=== PATIENT | female | born 1930 | race Caucasian/White ===

== ENCOUNTER 2016-05-14 20:29 | Emergency (ER) | payer MEDICARE, OTHER ==
[2016-05-14 21:23] LABS: Hematocrit 37.3 % (37.0-47.0); Hemoglobin 12.2 gm/dL (12.5-16.0); Mean Cell Volume 94.4 fl (78-100); Mean Corpuscular Hemoglobin 30.9 pg (27-31); Mean Corpuscular Hgb Conc 32.7 g/dl (32-36); Mean Platelet Volume 9.2 fl (6.0-9.5); Neutrophil # 7.9 K/mm3 (1.3-6.0); Neutrophil % 77.2 % (42-75.0); Platelet Count 218 K/mm3 (150-450); Red Blood Count 3.95 M/mm3 (4.2-5.4); Red Cell Distribution Width 12.7 % (11.5-14.0); White Blood Count 10.2 K/mm3 (4.0-10.5)
[2016-05-14 21:32] LABS: Prothrombin Time (Patient) 10.9 Seconds (9.4-11.4)
[2016-05-14 21:35] LABS: Albumin * 3.8 gm/dl (3.4-5.0); Anion Gap 17.4 mmol/L (6.8-13.8); BUN/Creatinine Ratio 18.7 (9.0-21.6); Bilirubin, Total 0.3 mg/dL (0.0-1.1); Calcium * 9.2 mg/dL (7.9-10.9); Potassium 3.4 mmol/L (3.4-4.6); Total Protein 7.4 gm/dL (6.2-8.2)
[2016-05-14 21:37] LABS: INR 1.05 INR (0.90-1.10)
[2016-05-14 22:15] LABS: Urine Bilirubin Negative (NEGATIVE); Urine Blood Negative /ul (NEGATIVE); Urine Ketone Negative (NEGATIVE); Urine Nitrite Negative (NEGATIVE); Urine Protein Negative (NEGATIVE); Urine Specific Gravity 1.025 SP.GR. (1.005-1.010); Urine Urobilinogen Normal (NORMAL)
[2016-05-14 22:32] LABS: Urine Appearance Slightly Cloudy; Urine Bacteria 4+; Urine Color Yellow; Urine RBC None Seen /hpf (0-5); Urine WBC 0-5 /hpf (0-5)
[2016-05-14 22:33] LABS: Urine Hyaline Cast 0-5 /LPF
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
[2016-05-14] MEDS ORDERED: HYDROmorphone HCL 1 MG/ML DISP.SYRIN IM ONE (22:51)
[2016-05-14] MEDS ORDERED: ONDANSETRON 4 MG TAB.RAPDIS PO ONE (22:52)
[2016-05-14] MEDS ORDERED: HYDROmorphone HCL 1 MG/ML DISP.SYRIN ONE (23:10)
[2016-05-14] MEDS ORDERED: ONDANSETRON 4 MG TAB.RAPDIS ONE (23:14)
[2016-05-15 00:08] VITALS: BP 144/58
== END 2016-05-15 00:51 | disposition home or self-care (01) ==
LOC: ER 20:29
DX: S80.01XA Contusion of right knee, initial encounter (principal); S09.90XA Unspecified injury of head, initial encounter; S20.211A Contusion of right front wall of thorax, initial encounter; W19.XXXA Unspecified fall, initial encounter; Y92.009 Unspecified place in unspecified non-institutional (private) residence as the place of occurrence of the external cause; Z96.653 Presence of artificial knee joint, bilateral

== ENCOUNTER 2016-08-14 15:44 | Emergency (ER) | payer MEDICARE, OTHER ==
[2016-08-14 16:01] VITALS: BP 136/57
--- NOTE | 2016-08-14 17:33 | ERNOTE ---
ENT HPI Date of Service: 08/14/16 Presenting Symptoms: foreign body Time Seen by Provider: 08/14/16 17:25 Source: patient, family, RN notes reviewed Exam Limitations: no limitations - Immun/Allergies/Home Medications Immunizations: IMMUNIZATION HX Immunizations Up to Date Yes History of Influenza Vaccine No Hx Pneumococcal Vaccination Yes Allergies/Adverse Reactions: Allergies Allergy/AdvReac Type Severity Reaction Status Date / Time No Known Allergies Allergy Verified 08/14/16 16:01 Home Medications: HOME MEDICATIONS levETIRAcetam [Keppra] 250 mg PO DAILY 08/14/16 [Last Taken Unknown] - History of Present Illness Narrative: 86 y/o female to ED by private vehicle for a foreign body in her right ear. She was attempting to get water out of her ear with a cotton swab. When she removed the QTip from her ear it was missing the cotton end. She then attempted to flush the ear with water but nothing came out. ENT Location: Present: ear (R) Review of Systems - Review of Systems Constitutional: Present: no symptoms reported EYE: Present: no symptoms reported ENT: Absent: ear pain, ear discharge Respiratory: Present: no symptoms reported Cardiology: Present: no symptoms reported Gastrointestinal/Abdominal: Present: no symptoms reported Genitourinary: Present: no symptoms reported Musculoskeletal: Present: no symptoms reported Skin: Present: no symptoms reported Neurological: Absent: headache, dizziness/light-headedness Endocrine: Present: no symptoms reported Hematologic/Lymphatic: Present: no symptoms reported Psych: Present: no symptoms reported - Patient's Past Medical History Patient History - Medical: Arthritis, Seizures Patient History - Cardiac/Respiratory: No pertinent hx Patient History - Cancer: No Hx of Cancer Patient History - Surgical Procedures: Back Surgery, Total Knee Replacement, Other Patient History - Other: None - Social History Living Situations: spouse Psych History: No pertinent hx Smoking Status: Former smoker Have you smoked in the past 12 months: No Do you dip or chew tobacco: No Alcohol Use: rarely Drug Use: none - Immunizations Immunizations Up to Date: Yes Hx Pneumococcal Vaccination: Yes History of Influenza Vaccine: No Physical Exam - Physical Exam General Appearance: Present: wd/wn, alert, no apparent distress Ears, Nose, Throat: Present: other - normal appearing TM's bilaterally, no foreign body present in either external auditory canal. Absent: hearing decreased Respiratory: Present: no respiratory distress, no accessory muscle use Neurological Exam: Present: alert, oriented, normal mood/affect Skin Exam: Present: normal color, warm/dry ED Progress - Vital Signs Patient's Vital Signs:: I have reviewed the patient's vital signs. Vital Signs: Vital Signs 08/14/16 15:53 Temperature 36.2 C L Pulse Rate 84 Respiratory 14 Rate Blood Pressure 136/57 O2 Sat by Pulse 97 Oximetry - Progress/Reassessment Chief Complaint: Earache Progress:: Pain free at discharge Departure Clinical Impression: Foreign body sensation in ear canal Qualifiers: Laterality: right Qualified Code(s): H61.891 - Other specified disorders of right external ear - Departure Disposition: Home self-care Condition: Good Additional Instructions: Do not put Q-tips in your ears Referrals: Sidney Donnelly MD [Primary Care Provider] -
--- OUTSIDE RECORDS SUMMARY | 2016-08-14 17:36 | XMS REPORT | Continuity of Care Document ---
:1930 Author Organization [facility] ([facility]) [place] [address] Phone [phone] Care Team Providers Name Role Phone Unavailable Primary Care Provider Unavailable Source Comments This disclosure is being made pursuant to the Care Everywhere program, applicable federal and state laws, and may not contain all informaitonavailable regarding this patient.[facility] ([facility]) Active Allergies and Adverse Reactions No Active Allergies Current Medications Not on file Active Problems Problem Noted Date 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 Other postoperative infection 07/21/2002 Pre-operative cardiovascular examination 05/02/2002 Other specified pre-operative examination 05/02/2002 Unspecified epilepsy without mention of intractable epilepsy 05/02/2002 Unspecified essential hypertension 05/02/2002 Spinal stenosis, unspecified region other than cervical 07/14/2001 Social History Tobacco Use Types Packs/Day Years Used Date Never Assessed Last Filed Vital Signs Vital Sign Reading Time Taken Blood Pressure - - Pulse - - Temperature - - Respiratory Rate - - Height 1.6 m (5' 2.99") 07/14/2001 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
== END 2016-08-14 17:35 | disposition home or self-care (01) ==
LOC: ER 15:44
DX: T16.1XXA Foreign body in right ear, initial encounter (principal); Z87.891 Personal history of nicotine dependence; R56.9 Unspecified convulsions; Y93.E8 Activity, other personal hygiene

== ENCOUNTER 2017-02-12 15:02 | Emergency (ER) | payer MEDICARE, OTHER ==
[2017-02-12] MEDS ORDERED: KETOROLAC TROMETHAMINE 30 MG/ML VIAL IM ONE (15:19)
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
[2017-02-12] MEDS ORDERED: KETOROLAC TROMETHAMINE 30 MG/ML VIAL ONE (15:36)
[2017-02-12 15:40] LABS: Hematocrit 34.2 % (37.0-47.0); Hemoglobin 11.5 gm/dL (12.5-16.0); Mean Cell Volume 93.2 fl (78-100); Mean Corpuscular Hemoglobin 31.3 pg (27-31); Mean Corpuscular Hgb Conc 33.6 g/dl (32-36); Mean Platelet Volume 9.8 fl (6.0-9.5); Neutrophil # 6.1 K/mm3 (1.3-6.0); Neutrophil % 75.7 % (42-75.0); Platelet Count 189 K/mm3 (150-450); Red Blood Count 3.67 M/mm3 (4.2-5.4); Red Cell Distribution Width 13.3 % (11.5-14.0); White Blood Count 8.1 K/mm3 (4.0-10.5)
[2017-02-12 16:00] LABS: ALT 28 U/L (19-67); AST 28 U/L (0-48); Alkaline Phosphatase * 128 U/L (50-170); BUN/Creatinine Ratio 22.6 (9.0-21.6); Bilirubin, Total 0.5 mg/dL (0.0-1.1); Blood Urea Nitrogen 37 mg/dL (3-23); Ca. Corrected For Albumin 8.8 mg/dL (8.4-10.2); Calcium * 9.1 mg/dL (7.9-10.9); Chloride 103 mmol/L (97-106); Glucose * 93 mg/dL (70-110); Sodium 138 mmol/L (132-142); Total Protein 7.4 gm/dL (6.2-8.2); Troponin I Less than 0.017 ng/ml (0.00-0.10)
[2017-02-12 18:31] VITALS: BP 188/90
== END 2017-02-12 18:10 | disposition home or self-care (01) ==
LOC: ER 15:02
DX: S00.83XA Contusion of other part of head, initial encounter (principal); M24.411 Recurrent dislocation, right shoulder; W01.198A Fall on same level from slipping, tripping and stumbling with subsequent striking against other object, initial encounter; Y93.01 Activity, walking, marching and hiking; Y92.009 Unspecified place in unspecified non-institutional (private) residence as the place of occurrence of the external cause

== ENCOUNTER 2020-02-23 07:38 | Observation (INO) ==
[2020-02-23] MEDS ORDERED: ONDANSETRON HCL/PF 2 MG/ML VIAL ONE (07:44)
[2020-02-23] MEDS ORDERED: ONDANSETRON HCL/PF 2 MG/ML VIAL IV ONE (07:50)
[2020-02-23] MEDS ORDERED: NORMAL SALINE 1,000 ML IV ONE (08:13)
--- NOTE | 2020-02-23 08:32 | ERNOTE ---
Dizziness ER Record Date of Service: 02/23/20 Presenting Symptoms: dizziness Time Seen by Provider: 02/23/20 08:02 Source: patient Exam Limitations: no limitations Immunizations: IMMUNIZATION HX Immunizations Up to Date Yes History of Influenza Vaccine No Hx Pneumococcal Vaccination No Allergies/Adverse Reactions: Allergies Allergy/AdvReac Type Severity Reaction Status Date / Time No Known Allergies Allergy Verified 05/25/19 13:19 Home Medications: HOME MEDICATIONS Beta-Carotene(A) W-C , E/Min [Ocuvite] 1 tab PO DAILY 02/12/17 [Last Taken Unknown] hydrochlorothiazide 12.5 mg tablet 12.5 mg PO DAILY #90 tab 04/25/19 [Last Taken Unknown] potassium chloride 10 mEq tablet,extended release See Rx Instructions .ROUTE .COMPLEX #90 unknown measurement unit code: tablet 08/04/19 [Last Taken Unknown] levetiracetam 250 mg tablet 250 mg PO DAILY #90 tab 01/30/20 [Last Taken Unknown] - History of Present Illness Narrative: Patient presents to the ED for spinning dizziness. She was fine last night at 10 when she went to bed. When she woke up this morning she had spinning dizziness with any movements or turning her head. She rested to see if this would go away but every times she turned over or tried to get up she was too dizzy. Better if she stayed at rest. With the severe spinning she became nauseated. Did not take her am blood pressure meds due to the nausea. No CP or SOB. No abdominal pain. No new focal N/T/W. Timing and Duration: lasted greater than 3 hrs Noted on awakening:: Yes Severity: max: severe Severity: currently: moderate Associated Symptoms: Present: nausea. Absent: hearing loss, ringing/roaring in ear, ear pain, headache, numbness Sense of movement: Present: spinning Decreased ability to stand/walk:: Present: off balance Modifying Factors - (Improves): Reports: other - rest Modifying Factors - (Worsens): Reports: other - position change, turning head Prior Treament: Denies: recently seen Review of Systems - Review of Systems Constitutional: Absent: fever EYE: Absent: double vision ENT: Absent: sore throat Respiratory: Absent: shortness of breath Cardiology: Absent: chest pain Gastrointestinal/Abdominal: Present: nausea. Absent: abdominal pain Genitourinary: Absent: dysuria Musculoskeletal: Present: other - chronic MSK Sx and neuropathy Neurological: Present: other - neuropathy All Other Systems: All systems neg except as marked Medical History (Last Reviewed 02/23/20 @ 08:31 by Harry Stroud MD) Urge incontinence (Chronic) Onset Date: Unknown Hypothyroidism (Chronic) Onset Date: ~1968 HTN (hypertension) (Chronic) Onset Date: Unknown Colitis Onset Date: Unknown Epilepsy Onset Date: Unknown Fibrosis of uterus Onset Date: Unknown Occasional tremors Onset Date: Unknown Osteoarthritis involving multiple joints on both sides of body Onset Date: Unknown Peripheral neuropathy Onset Date: Unknown Seizures Onset Date: ~1969 since 1970 Wears eyeglasses Onset Date: Unknown Surgical History: Surgical History (Last Reviewed 02/23/20 @ 08:31 by Harry Stroud MD) Cataract Onset Date: ~03/09/07 Sifuentes-03/09/2007-RT eye, 01/26/07 LT FH: HYUN-BSO (total abdominal hysterectomy and bilateral salpingo-oophorectomy) Onset Date: ~1979 uterine fibroids History of appendectomy Onset Date: Unknown History of back surgery Onset Date: ~2002 1994, 2002 x 2 History of colonoscopy Onset Date: ~09/22/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 History of esophagogastroduodenoscopy (EGD) Onset Date: ~09/22/11 Bagan-Clotest neg, moderate chemical irritation, chronic inflammation History of right shoulder replacement Onset Date: ~1989 History of tonsillectomy Onset Date: ~1933 Hx of total knee arthroplasty Onset Date: ~1989-1989, Lt 1988,1996 S/P adenoidectomy Onset Date: ~1933 S/P cystoscopy Onset Date: ~04/11/09 Tubal ligation evaluation Onset Date: ~1958 1956,1958 [place] teeth extracted Onset Date: ~2000 Family History: Family History (Last Reviewed 02/23/20 @ 08:31 by Harry Stroud MD) Father , 96-bladder cancer, [place] Cancer Heart disease Mother , 100-cervical cancer Cancer Social History: (Last Reviewed 02/23/20 @ 08:31 by Harry Stroud MD) Social History: custodial: No Marital status: / lives independently: Yes household members: spouse number of children: 7 current occupational status: retired Highest education level completed: 11th grade Sexually Active: No Service: No Tobacco: Smoking Status: Former smoker Alcohol: alcohol intake: current alcohol intake frequency: holiday/special occasion Dietary Habits: caffeine: Yes Type: coffee Physical Exam - Physical Exam General Appearance: Present: alert, no apparent distress Head Exam: Present: normal inspection, no evidence of injury Eye Exam: Normal inspection: bilateral, PERRL: bilateral Ears, Nose, Throat: Present: normal ENT inspection Neck: Present: normal inspection Respiratory: Present: no respiratory distress, normal breath sounds, no accessory muscle use, lungs clear Cardiovascular/Chest: Present: regular rate, rhythm, normal peripheral pulses Gastrointestinal/Abdominal: Present: normal bowel sounds, nontender, nondistended, soft Back Exam: Absent: CVA tenderness (R), CVA tenderness (L) Extremity Exam: Present: normal range of motion Neurological Exam: Present: alert, no motor/sensory deficits, 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 Reproducible dizziness and nystagmus with turning her head.. Absent: facial droop, motor weakness Skin Exam: Present: normal color, warm/dry Progress - Results and Orders Patient's Lab Results:: I have reviewed the patient's lab results. - Vital Signs Patient's Vital Signs:: I have reviewed the patient's vital signs. Vital Signs: Vital Signs 02/23/20 07:40 02/23/20 07:51 02/23/20 08:21 Temperature 36.0 C Pulse Rate 63 64 64 Respiratory Rate 22 H 18 Blood Pressure 183/98 H 169/72 H O2 Sat by Pulse Oximetry 97 96 - EKG EKG #1 EKG: NSR EKG read: Interp. by me EKG Comments: NSR rate 61. Non-specific, no STEMI noted - CT/Ultrasound CT/Ultrasound Narrative: I reviewed official radiology report for CT head. - Progress/Reassessment Chief Complaint: Dizziness Progress Note-Subjective: 02/23/20 09:48 No vestibulotherapy available today. Given IVF, meclizine and zofran. Despite this she was unable to walk on her own or go home safely. This is c/w BPV, no suggestion of stroke at this time. This dizziness is not likely due to her UTI. She is agreeable. I spoke with Dr Verdugo who will admit with plan for vestibulotherapy tomorrow. Departure Clinical Impression: Vertigo, UTI (urinary tract infection) - Departure Disposition: Still a patient Condition: Stable Referrals: Sidney Donnelly MD [Primary Care Provider] -
[2020-02-23 08:34] LABS: Hemoglobin 11.9 gm/dL (12.5-16.0); Mean Cell Volume 93.3 fl (78-100); Mean Corpuscular Hemoglobin 30.8 pg (27-31); Mean Corpuscular Hgb Conc 33.1 g/dl (32-36); Mean Platelet Volume 9.9 fl (8-12.5); Neutrophil # 4.6 K/mm3 (1.3-6.0); Neutrophil % 70.7 % (42-75.0); Platelet Count 177 K/mm3 (150-450); Red Blood Count 3.86 M/mm3 (4.2-5.4); Red Cell Distribution Width 13.1 % (11.5-14.0); White Blood Count 6.4 K/mm3 (4.0-10.5)
[2020-02-23 08:37] LABS: Urine Appearance Slightly Cloudy (CLEAR); Urine Bilirubin Negative (NEGATIVE); Urine Blood Negative /ul (NEGATIVE); Urine Color Pale Yellow; Urine Ketone Negative (NEGATIVE); Urine Nitrite Positive (NEGATIVE); Urine Protein Negative (NEGATIVE); Urine Specific Gravity 1.015 SP.GR. (1.005-1.010); Urine Urobilinogen Normal (NORMAL)
[2020-02-23 08:38] LABS: Urine Bacteria 1+; Urine RBC None Seen /hpf (0-5)
[2020-02-23] MEDS ORDERED: MECLIZINE HCL 25 MG TABLET PO ONE (08:41)
[2020-02-23 08:49] LABS: ALT 19 U/L (19-67); AST 26 U/L (0-48); Albumin * 3.6 gm/dl (3.4-5.0); Alkaline Phosphatase * 108 U/L (50-170); Anion Gap 15.1 mmol/L (6.8-13.8); BUN/Creatinine Ratio 30.9 (9.0-21.6); Bilirubin, Total 0.3 mg/dL (0.0-1.1); Blood Urea Nitrogen 38 mg/dL (3-23); Ca. Corrected For Albumin 9.5 mg/dL (8.4-10.2); Calcium * 9.5 mg/dL (7.9-10.9); Carbon Dioxide 24.3 mmol/L (24-32.6); Chloride 103 mmol/L (97-106); Glucose * 109 mg/dL (70-110); Potassium 3.4 mmol/L (3.4-4.6); Sodium 139 mmol/L (132-142); Total Protein 7.1 gm/dL (6.2-8.2); Troponin I Less than 0.017 ng/mL (0.00-0.10)
[2020-02-23] MEDS ORDERED: cefTRIAXone SODIUM 1,000 MG/100 ML BAG IV ONE (08:51)
--- NOTE | 2020-02-23 10:55 | HP ---
Chief Complaint - Chief Complaint Date of Service: 02/23/20 Time of Service: 09:56 Chief Complaint: Dizziness x1 day History of Present Illness: 89-year-old female with a past medical history of hypertension, hypothyroidism, seizure disorder, colitis, peripheral neuropathy, osteoarthritis, urge incontinence who presents from home with complaints of dizziness x1 day. She states she woke up this morning with significant dizziness and feeling that the room was spinning when she tried to get out of bed. She was unable to get out of bed without falling back indicating dizziness. She is also complained of nausea and one episode of vomiting scant liquid. She was brought to the emergency department for further evaluation. In the ER she was found to have elevated blood pressure and tachypnea, labs are at her baseline with chronic anemia and CKD, urine is positive for nitrates and leukocyte esterase. She denies pain with urination. She was given 1 dose of Rocephin in the emergency room. In the ER physician consulted physical therapy to come do vestibular therapy on her but they were not available until tomorrow. She needs assistance with ambulation and is not safe to be discharged home. She lives alone. She is being admitted for observation and will be evaluated by physical therapy for vestibular rehab. Medical History (Last Reviewed 02/23/20 @ 08:31 by Harry Stroud MD) Urge incontinence (Chronic) Onset Date: Unknown Hypothyroidism (Chronic) Onset Date: ~1968 HTN (hypertension) (Chronic) Onset Date: Unknown Colitis Onset Date: Unknown Epilepsy Onset Date: Unknown Fibrosis of uterus Onset Date: Unknown Occasional tremors Onset Date: Unknown Osteoarthritis involving multiple joints on both sides of body Onset Date: Unknown Peripheral neuropathy Onset Date: Unknown Seizures Onset Date: ~1969 since 1970 Wears eyeglasses Onset Date: Unknown Surgical History: Surgical History (Last Reviewed 02/23/20 @ 08:31 by Harry Stroud MD) Cataract Onset Date: ~03/09/07 [place]-03/09/2007-RT eye, 01/26/07 LT FH: HYUN-BSO (total abdominal hysterectomy and bilateral salpingo-oophorectomy) Onset Date: ~1979 uterine fibroids History of appendectomy Onset Date: Unknown History of back surgery Onset Date: ~2002 1993, 2002 x 2 History of colonoscopy Onset Date: ~09/22/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 History of esophagogastroduodenoscopy (EGD) Onset Date: ~09/22/11 Bagan-Clotest neg, moderate chemical irritation, chronic inflammation History of right shoulder replacement Onset Date: ~1989 History of tonsillectomy Onset Date: ~1933 Hx of total knee arthroplasty Onset Date: ~1989-1989, Lt 1988,1996 S/P adenoidectomy Onset Date: ~1933 S/P cystoscopy Onset Date: ~04/11/09 Tubal ligation evaluation Onset Date: ~1958 1956,1958 [place] teeth extracted Onset Date: ~2000 Family History: Family History (Last Reviewed 02/23/20 @ 08:31 by Harry Stroud MD) Father , 96-bladder cancer, [place] Cancer Heart disease Mother , 100-cervical cancer Cancer Social History: (Last Reviewed 02/23/20 @ 08:31 by Harry Stroud MD) Social History: group home: No Marital status: / lives independently: Yes household members: spouse number of children: 7 current occupational status: retired Highest education level completed: 11th grade Sexually Active: No Service: No Tobacco: Smoking Status: Former smoker Alcohol: alcohol intake: current alcohol intake frequency: holiday/special occasion Dietary Habits: caffeine: Yes Type: coffee Review Of Systems (GEN) - Review of Systems Generalized/Overall Review: Absent: Chills, Fever Respiratory: Absent: Shortness of Breath Cardiac: Absent: Chest Pain Abdominal: Present: Nausea, Vomiting. Absent: Abdominal Pain Genitourinary: Absent: Dysuria Neurological: Present: Other - Dizziness Misc: All systems neg except as marked Immunizations: IMMUNIZATION HX Immunizations Up to Date Yes History of Influenza Vaccine No Hx Pneumococcal Vaccination No Allergies/Adverse Reactions: Allergies Allergy/AdvReac Type Severity Reaction Status Date / Time No Known Allergies Allergy Verified 05/25/19 13:19 Home Medications: HOME MEDICATIONS Beta-Carotene(A) W-C , E/Min [Ocuvite] 1 tab PO DAILY 02/12/17 [Last Taken Unknown] hydrochlorothiazide 12.5 mg tablet 12.5 mg PO DAILY #90 tab 04/25/19 [Last Taken Unknown] potassium chloride 10 mEq tablet,extended release See Rx Instructions .ROUTE .COMPLEX #90 unknown measurement unit code: tablet 08/04/19 [Last Taken Unknown] levetiracetam 250 mg tablet 250 mg PO DAILY #90 tab 01/30/20 [Last Taken Unknown] Exam - Exam Vital Signs: Vital Signs - Last Taken Temp 36.0 C 02/23/20 07:40 Pulse 62 02/23/20 10:18 Resp 12 02/23/20 10:18 BP 136/76 02/23/20 10:18 Pulse Ox 100 02/23/20 10:18 Constitutional: Present: Alert, Cooperative, Well developed, Well nourished, No distress ENT Exam: Present: hearing grossly normal Eye Exam: bilateral eye: normal inspection, PERRL, EOMI Neck: Present: non-tender, supple. Absent: lymphadenopathy (R), lymphadenopathy (L) Back Exam: Present: normal inspection, no CVA tenderness, no vertebral tenderness Respiratory: Present: lungs clear, no respiratory distress, no accessory muscle use, No wheezing. Absent: crackles, rhonchi Cardiovascular/Chest: Present: normal peripheral pulses, regular rate, rhythm, no edema, no murmur Peripheral Pulses: dorsalis-pedis (R): 1+, dorsalis-pedis (L): 1+ Abdomen: Present: Normal bowel sounds, soft, nontender Extremity: Present: no pedal edema Skin Exam: Present: normal color, warm/dry Neurologic: Present: alert, normal mood/affect, dizzy/light-headedness Appearance: Present: appropriate appearance, appropriate insight Eye contact: Present: cooperative Thoughts: Present: normal thought pattern, normal mood /affect Diagnostic Studies: Abnormal Lab Results 02/23/20 02/23/20 02/23/20 Range/Units 08:11 08:11 08:11 RBC 3.86 L (4.2-5.4) M/mm3 Hgb 11.9 L (12.5-16.0) gm/dL Hct 36.0 L (37.0-47.0) % Immature Gran % (Auto) 0.90 H (0.001-0.429) % Immature Gran # (Auto) 0.06 H (0.000-0.0310) K/mm3 Lymphocytes % 15.6 L (20-51) % Eosinophils % 3.6 H (0.0-3.0) % Lymphocytes # 1.00 L (1.5-3.5) k/mm3 Anion Gap 15.1 H (6.8-13.8) mmol/L BUN 38 H (3-23) mg/dL Est GFR (Non-Af Amer) 44 L (60-130) mL/min BUN/Creatinine Ratio 30.9 H (9.0-21.6) Urine Nitrate Positive H (NEGATIVE) Ur Leukocyte Esterase 25 H (NEGATIVE) /ul Urine WBC 5-10 H (0-5) /hpf Ur Epithelial Cells 5-10 H (0-5) /hpf Urine Bacteria 1+ H (NONE) Laboratory Results WBC 6.4 K/mm3 (4.0-10.5) 02/23/20 08:11 RBC 3.86 M/mm3 (4.2-5.4) L 02/23/20 08:11 Hgb 11.9 gm/dL (12.5-16.0) L 02/23/20 08:11 Hct 36.0 % (37.0-47.0) L 02/23/20 08:11 MCV 93.3 fl (78-100) 02/23/20 08:11 MCH 30.8 pg (27-31) 02/23/20 08:11 MCHC 33.1 g/dl (32-36) 02/23/20 08:11 RDW 13.1 % (11.5-14.0) 02/23/20 08:11 Plt Count 177 K/mm3 (150-450) 02/23/20 08:11 MPV 9.9 fl (8-12.5) 02/23/20 08:11 Immature Gran % (Auto) 0.90 % (0.001-0.429) H 02/23/20 08:11 Immature Gran # (Auto) 0.06 K/mm3 (0.000-0.0310) H 02/23/20 08:11 Neutrophils % 70.7 % (42-75.0) 02/23/20 08:11 Lymphocytes % 15.6 % (20-51) L 02/23/20 08:11 Monocytes % 8.6 % (0.0-9) 02/23/20 08:11 Eosinophils % 3.6 % (0.0-3.0) H 02/23/20 08:11 Basophils % 0.6 % (0.0-1.0) 02/23/20 08:11 Nucleated RBC % 0.0 k/mm3 (0-1) 02/23/20 08:11 Neutrophils # 4.6 K/mm3 (1.3-6.0) 02/23/20 08:11 Lymphocytes # 1.00 k/mm3 (1.5-3.5) L 02/23/20 08:11 Monocytes # 0.6 k/mm3 (0.0-1.0) 02/23/20 08:11 Eosinophils # 0.2 k/mm3 (0.0-0.7) 02/23/20 08:11 Absolute Basophils 0.0 k/mm3 (0.0-0.1) 02/23/20 08:11 Sodium 139 mmol/L (132-142) 02/23/20 08:11 Plasma Sodium 139 mmol/L (130-142) 02/23/20 08:11 Potassium 3.4 mmol/L (3.4-4.6) 02/23/20 08:11 Chloride 103 mmol/L (97-106) 02/23/20 08:11 Carbon Dioxide 24.3 mmol/L (24-32.6) 02/23/20 08:11 Anion Gap 15.1 mmol/L (6.8-13.8) H 02/23/20 08:11 BUN 38 mg/dL (3-23) H 02/23/20 08:11 Creatinine 1.23 mg/dL (0.4-1.4) 02/23/20 08:11 Est GFR (Non-Af Amer) 44 mL/min (60-130) L 02/23/20 08:11 BUN/Creatinine Ratio 30.9 (9.0-21.6) H 02/23/20 08:11 Random Glucose 109 mg/dL (70-110) 02/23/20 08:11 Calcium 9.5 mg/dL (7.9-10.9) 02/23/20 08:11 Calcium Adj for Albumin 9.5 mg/dL (8.4-10.2) 02/23/20 08:11 Total Bilirubin 0.3 mg/dL (0.0-1.1) 02/23/20 08:11 AST 26 U/L (0-48) 02/23/20 08:11 ALT 19 U/L (19-67) 02/23/20 08:11 Alkaline Phosphatase 108 U/L (50-170) 02/23/20 08:11 Troponin I Less than 0.017 ng/mL (0.00-0.10) 02/23/20 08:11 Total Protein 7.1 gm/dL (6.2-8.2) 02/23/20 08:11 Albumin 3.6 gm/dl (3.4-5.0) 02/23/20 08:11 Urine Color Pale yellow 02/23/20 08:11 Urine Appearance Slightly cloudy (CLEAR) 02/23/20 08:11 Urine pH 7.0 pH (5.0-7.0) 02/23/20 08:11 Ur Specific [place] 1.015 SP.GR. (1.005-1.010) 02/23/20 08:11 Urine Protein Negative mg/dL (NEGATIVE) 02/23/20 08:11 Urine Glucose (UA) Negative mg/dL (NEGATIVE) 02/23/20 08:11 Urine Ketones Negative mg/dL (NEGATIVE) 02/23/20 08:11 Urine Blood Negative /ul (NEGATIVE) 02/23/20 08:11 Urine Nitrate Positive (NEGATIVE) H 02/23/20 08:11 Urine Bilirubin Negative mg/dl (NEGATIVE) 02/23/20 08:11 Urine Urobilinogen Normal EU/dl (NORMAL) 02/23/20 08:11 Ur Leukocyte Esterase 25 /ul (NEGATIVE) H 02/23/20 08:11 Urine RBC None seen /hpf (0-5) 02/23/20 08:11 Urine WBC 5-10 /hpf (0-5) H 02/23/20 08:11 Ur Epithelial Cells 5-10 /hpf (0-5) H 02/23/20 08:11 Urine Bacteria 1+ (NONE) H 02/23/20 08:11 Urine Culture Comments Culture to follow 02/23/20 08:11 Assessment/Plan - Narrative Narrative: 89-year-old female with a past medical history of hypertension, hypothyroidism, seizure disorder, colitis, peripheral neuropathy, osteoarthritis, urge incontinence who presents from home with complaints of dizziness x1 day. She states she woke up this morning with significant dizziness and feeling that the room was spinning when she tried to get out of bed. She was unable to get out of bed without falling back indicating dizziness. She is also complained of nausea and one episode of vomiting scant liquid. She was brought to the emergency department for further evaluation. In the ER she was found to have elevated blood pressure and tachypnea, labs are at her baseline with chronic anemia and CKD, urine is positive for nitrates and leukocyte esterase. She denies pain with urination. She was given 1 dose of Rocephin in the emergency room. In the ER physician consulted physical therapy to come do vestibular therapy on her but they were not available until tomorrow. She needs assistance with ambulation and is not safe to be discharged home. She lives alone. She is being admitted for observation and will be evaluated by physical therapy for vestibular rehab. Plan #1 PT consulted for vestibular therapy #2 resume home medications for comorbidities #3 fall precautions - Assessment/Plan (1) Vertigo Problem: Acute (2) UTI (urinary tract infection) Problem: Suspected (3) Seizure disorder Problem: Inactive (4) Hypothyroidism Problem: Chronic Qualifiers: Hypothyroidism type: acquired (5) HTN (hypertension) Problem: Chronic Qualifiers: Hypertension type: essential hypertension
[2020-02-23] MEDS ORDERED: BETA-CAROTENE(A) W-C , E/MIN 1 TAB TABLET PO SCH ×2 (12:00→21:00)
[2020-02-23] MEDS ORDERED: levETIRAcetam 500 MG TABLET PO SCH ×2 (12:00→21:00)
[2020-02-23] MEDS ORDERED: HYDROCHLOROTHIAZIDE 12.5 MG CAPSULE PO SCH ×2 (12:00→21:00)
[2020-02-23] MEDS ORDERED: FLU VACC QS2020-21(6MOS UP)/PF 60 MCG/0.5 ML SYRINGE IM ONE (15:00)
--- NOTE | 2020-02-24 10:14 | DS ---
(1) Vertigo Problem: Acute (2) Seizure disorder Problem: Inactive (3) Hypothyroidism Problem: Chronic Qualifiers: Hypothyroidism type: acquired (4) HTN (hypertension) Problem: Chronic Qualifiers: Hypertension type: essential hypertension (5) UTI (urinary tract infection) Problem: Ruled-out Hospital Course: 89-year-old female with a past medical history of hypertension, hypothyroidism, seizure disorder, colitis, peripheral neuropathy, osteoarthritis, urge incontinence who presents from home with complaints of dizziness x1 day. She states she woke up this morning with significant dizziness and feeling that the room was spinning when she tried to get out of bed. She was unable to get out of bed without falling back indicating dizziness. She is also complained of nausea and one episode of vomiting scant liquid. She was brought to the emergency department for further evaluation. In the ER she was found to have elevated blood pressure and tachypnea, labs are at her baseline with chronic anemia and CKD, urine is positive for nitrates and leukocyte esterase. She denies pain with urination. She was given 1 dose of Rocephin in the emergency room. In the ER physician consulted physical therapy to come do vestibular therapy on her but they were not available until tomorrow. She needs assistance with ambulation and is not safe to be discharged home. She lives alone. She is being admitted for observation and will be evaluated by physical therapy for vestibular rehab. She received vestibular therapy in while in the hospital and her symptoms improved significantly. Her urine is positive for gram-negative bacilli. She denies any symptoms of pain with urination, fever or abdominal pain, therefore I will not continue the antibiotics. She will follow up with outpatient vestibular rehab. She will also follow-up with her PCP in the next 1 to 2 weeks. Procedures Performed: none Results and Findings: Pending Mircobiology Results 02/23/20 08:11 Urine,Clean Catch Urine Culture - Preliminary Gram Negative Bacilli Lab Pending Results 02/23/20 08:11: WBC 6.4, RBC 3.86 L, Hgb 11.9 L, Hct 36.0 L, MCV 93.3, MCH 30.8, MCHC 33.1, RDW 13.1, Plt Count 177, MPV 9.9, Immature Gran % (Auto) 0.90 H, Immature Gran # (Auto) 0.06 H, Neutrophils % 70.7, Lymphocytes % 15.6 L, Monocytes % 8.6, Eosinophils % 3.6 H, Basophils % 0.6, Nucleated RBC % 0.0, Neutrophils # 4.6, Lymphocytes # 1.00 L, Monocytes # 0.6, Eosinophils # 0.2, Absolute Basophils 0.0 02/23/20 08:11: Sodium 139, Plasma Sodium 139, Potassium 3.4, Chloride 103, Carbon Dioxide 24.3, Anion Gap 15.1 H, BUN 38 H, Creatinine 1.23, Est GFR (Non- Af Amer) 44 L, BUN/Creatinine Ratio 30.9 H, Random Glucose 109, Calcium 9.5, Calcium Adj for Albumin 9.5, Total Bilirubin 0.3, AST 26, ALT 19, Alkaline Phosphatase 108, Troponin I Less than 0.017, Total Protein 7.1, Albumin 3.6 02/23/20 08:11: Urine Color Pale yellow, Urine Appearance Slightly cloudy, Urine pH 7.0, Ur Specific [place] 1.015, Urine Protein Negative, Urine Glucose (UA) Negative, Urine Ketones Negative, Urine Blood Negative, Urine Nitrate Positive H, Urine Bilirubin Negative, Urine Urobilinogen Normal, Ur Leukocyte Esterase 25 H, Urine RBC None seen, Urine WBC 5-10 H, Ur Epithelial Cells 5-10 H, Urine Bacteria 1+ H, Urine Culture Comments Culture to follow Discharge Location: Home Disposition: Home self-care Condition: Stable Discharge Activity: Activity as tolerated Discharge Diet: General/regular food Referrals: Sidney Donnelly MD [Primary Care Provider] - Additional Patient Instructions (free text): [facility] Outpatient therapy appointment for BPPV. Complete Home Medications List: Complete Home Medication List: Beta-Carotene(A) W-C , E/Min [Ocuvite] 1 tab PO HS 02/12/17 hydrochlorothiazide 12.5 mg tablet 12.5 mg PO DAILY #90 tab 04/25/19 levetiracetam 250 mg tablet 250 mg PO DAILY #90 tab 01/30/20 Ibuprofen [Motrin] 200 mg PO HS 02/23/20 Potassium Chloride [K-Tab ER] 10 meq PO DAILY 02/23/20
[2020-02-24 14:14] VITALS: BP 130/67
== END 2020-02-24 14:00 | disposition home or self-care (01) ==
LOC: MS 07:38 → ER 07:38 → MS 10:18
PROVIDERS: ADMIT Internal Medicine; ATTEND Internal Medicine
DX: D64.9 Anemia, unspecified; E03.9 Hypothyroidism, unspecified; Z23 Encounter for immunization; R42 Dizziness and giddiness; G40.909 Epilepsy, unspecified, not intractable, without status epilepticus; N39.41 Urge incontinence; I10 Essential (primary) hypertension